=== PATIENT | female | born 1960 | race Native Hawaiian/Other Pacific Islander ===

== ENCOUNTER 2017-11-18 08:12 | Day surgery (SDC) | payer OTHER ==
[~2017-11-18] VITALS: Ht 152.4 cm; Wt 144.2 kg
[2017-11-18 09:08] LABS: PLATELET COUNT 154 K/uL (152-353)
[2017-11-18 09:14] LABS: POTASSIUM 5.7 mmol/L (3.6-5.2)
== END 2017-11-18 16:17 | disposition home or self-care (01) ==
LOC: OR 08:12
PROVIDERS: Student in an Organized Health Care Education/Training Program
PROC: 0DJD8ZZ Inspection of Lower Intestinal Tract, Via Natural or Artificial Opening Endoscopic (ICD-10-PCS; principal; 2017-11-18)
DX: K64.8 Other hemorrhoids (principal); Z12.11 Encounter for screening for malignant neoplasm of colon; E11.9 Type 2 diabetes mellitus without complications; J45.909 Unspecified asthma, uncomplicated
CPT/HCPCS: 80053; 82947; 84132; 85027; 93005; 94640; 94664; 94760; J0610; J1815; J2001; J2250; J2405; J2704; J7060

== ENCOUNTER 2018-08-26 11:39 | Outpatient (CLI) | payer OTHER ==
[2018-08-26 11:59] LABS: PLATELET COUNT 146 K/uL (152-353)
== END 2018-08-26 23:44 | disposition home or self-care (01) ==
LOC: LABW 11:39
PROVIDERS: Nurse Practitioner
DX: R53.83 Other fatigue (principal); E87.5 Hyperkalemia; E55.9 Vitamin D deficiency, unspecified; Z79.899 Other long term (current) drug therapy
CPT/HCPCS: 36415; 80053; 80061; 82306; 84439; 84443; 85027

== ENCOUNTER 2019-04-09 11:11 | Outpatient (CLI) | payer OTHER | END 2019-04-09 19:11 | disposition home or self-care (01) | LOC: MAMMO 11:11 | DX: Z12.31 Encounter for screening mammogram for malignant neoplasm of breast (principal) ==

== ENCOUNTER 2019-09-22 10:02 | Outpatient (CLI) | payer OTHER | END 2019-09-22 20:30 | disposition home or self-care (01) | LOC: RAD 10:02 | DX: Z01.818 Encounter for other preprocedural examination (principal) ==

== ENCOUNTER 2019-11-29 14:43 | Outpatient (CLI) | payer OTHER ==
[2019-11-29 15:07] LABS: PLATELET COUNT 127 K/uL (152-353)
[2019-11-29 15:17] LABS: POTASSIUM 5.5 mmol/L (3.6-5.2)
== END 2019-11-29 22:35 | disposition home or self-care (01) ==
LOC: LABW 14:43
PROVIDERS: Internal Medicine
DX: I12.9 Hypertensive chronic kidney disease with stage 1 through stage 4 chronic kidney disease, or unspecified chronic kidney disease (principal); N18.4 Chronic kidney disease, stage 4 (severe)
CPT/HCPCS: 36415; 80048; 81000; 82040; 82570; 83883; 84100; 84155; 84550; 85027; 86038

== ENCOUNTER 2019-12-20 11:26 | Outpatient (CLI) | payer OTHER ==
[2019-12-20 11:54] LABS: POTASSIUM 4.9 mmol/L (3.6-5.2)
[2019-12-20 12:19] LABS: PLATELET COUNT 163 K/uL (152-353)
== END 2019-12-20 19:08 | disposition home or self-care (01) ==
LOC: LABW 11:26
PROVIDERS: Internal Medicine
DX: I12.9 Hypertensive chronic kidney disease with stage 1 through stage 4 chronic kidney disease, or unspecified chronic kidney disease (principal); N18.30 Chronic kidney disease, stage 3 unspecified
CPT/HCPCS: 36415; 80048; 82040; 84100; 84550; 85027

== ENCOUNTER 2020-01-25 11:01 | Outpatient (CLI) | payer OTHER ==
[2020-01-25 11:29] LABS: PLATELET COUNT 142 K/uL (152-353)
== END 2020-01-25 21:57 | disposition home or self-care (01) ==
LOC: LABW 11:01
PROVIDERS: ATTEND Internal Medicine
DX: I12.9 Hypertensive chronic kidney disease with stage 1 through stage 4 chronic kidney disease, or unspecified chronic kidney disease (principal); N18.30 Chronic kidney disease, stage 3 unspecified
CPT/HCPCS: 36415; 80048; 82040; 84100; 84550; 85027

== ENCOUNTER 2020-02-15 09:51 | Outpatient (CLI) | payer OTHER ==
[2020-02-15 10:19] LABS: PLATELET COUNT 154 K/uL (152-353)
[2020-02-15 10:36] LABS: POTASSIUM 4.5 mmol/L (3.6-5.2)
== END 2020-02-15 22:07 | disposition home or self-care (01) ==
LOC: LABW 09:51
PROVIDERS: ATTEND Internal Medicine
DX: N18.5 Chronic kidney disease, stage 5 (principal); N17.9 Acute kidney failure, unspecified
CPT/HCPCS: 36415; 80053; 84100; 84550; 85027

== ENCOUNTER 2020-04-18 09:05 | Outpatient (CLI) | payer OTHER ==
[2020-04-18 09:28] LABS: PLATELET COUNT 150 K/uL (152-353)
[2020-04-18 09:38] LABS: POTASSIUM 4.9 mmol/L (3.6-5.2)
== END 2020-04-18 19:14 | disposition home or self-care (01) ==
LOC: LABW 09:05
PROVIDERS: ATTEND Internal Medicine
DX: I12.9 Hypertensive chronic kidney disease with stage 1 through stage 4 chronic kidney disease, or unspecified chronic kidney disease (principal); N18.9 Chronic kidney disease, unspecified
CPT/HCPCS: 36415; 80048; 82040; 84100; 84550; 85027